=== PATIENT | male | born 1985 | race Caucasian/White ===

== ENCOUNTER 2017-03-07 20:20 | Emergency (ER) | payer SELFPAY ==
[2017-03-07 20:26] VITALS: BMI 29.7
[2017-03-07] MEDS ORDERED: NIFEDIPINE CAP 10 MG PO ONE (20:38)
[2017-03-07] MEDS ORDERED: NIFEDIPINE CAP 10 MG ONE (20:38)
--- NOTE | 2017-03-07 21:07 | DR.GENAD ---
HPI - PCP Primary Care Physician: ja - HPI Comment HPI Comment: HISTORY BELOW. - Complaint/Symptoms Chief Complaint Doctors Comments: PAIN AND REDNESS RT ELBOW TIMES 3 DAYS. MORE SWOLLEN AND REDNESS SPREADING. 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 GETTING WORSE. HAVE LOW GRADE FEVER. Chief Complaint:: pt states" my rt elbow is swollen and hurts i went to [place] they gave me a rx for septra i haven't gotten it yet" - Nurses notes reviewed Nurses Notes Review: Yes - Source History Provided: Patient - Mode of Arrival Mode of Arrival: Ambulatory - Timing Onset of Chief Complaint: 03/05/17 Came on: Gradually - Duration Duration: Constant Duration: Days - Severity Severity: Moderate PMH - PMH Past Medical History: Yes Past Medical History: Hypertension Past Surgical History: No - Family History History of Family Medical Conditions: Yes Family Medical History: Hypertension - Social History Lives With: Family Lives Where: Home - infectious screening In the last 2 months have you had wt loss of >10#?: NO Have you had fever, night sweats or hemotysis?: No Have you traveled outside the country in the last 6 months?: No Isolation: Standard ROS - Review of Systems Constitutional: Fever. negative: Chills, Weakness, Fatigue Eyes: No Symptoms Reported ENTM: No Symptoms Reported Respiratoy: No Symptoms Reported Cardiovascular: No Symptoms Reported Gastrointestinal/Abdominal: No Symptoms Reported Genitourinary: No Symptoms Reported Neurological: No Symptoms Reported Musculoskeletal: Right, Elbow Integumentary: Change in Color (REDNESS RIGHT ELBOW.) Hematologic/Lymphatic: No Symptoms Reported Endocrine: No Symptoms Reported All Other Systems: Reviewed and Negative PE - Vital Signs Vitals: Temperature 99 F Pulse Rate 98 Respiratory Rate 18 Blood Pressure [Left Arm] 147/67 Blood Pressure 198/122 O2 Sat by Pulse Oximetry 100 - General Limitations: No Limitations General Appearance: Alert - Head Head Exam: Normal Inspection - Eyes Eye exam: Normal Appearance - ENT ENT Exam: Normal External Ear Exam External Ear Exam: Normal External Inspection TM/Canal Exam: Bilateral Normal Nose Exam: Normal Nose Exam Mouth Exam: Normal Inspection Throat Exam: Normal Inspection - Neck Neck Exam: Normal Inspection - Chest Chest Inspection: Normal Inspection - Respiratory Respiratory Exam: Normal Lung Sounds Bilat Respiratory Exam: Bilateral Clear to Auscultation - Cardiovascular Cardiovascular Exam: Regular Rate, Normal Rhythm, Normal Heart Sounds - Abdominal Exam Abdominal Exam: Normal Bowel Sounds, Soft. negative: Tenderness - Extremities Extremities Exam: Tenderness (RIGHT ELBOW SWELLING, REDNESS AND TENDERNESS. PAUL.) - Back Back Exam: Normal Inspection - Neurologic Neurological Exam: Alert, Oriented X3 - Psychiatric Psychiatric Exam: Normal Affect, Normal Mood - Skin Skin Exam: Erythema MDM - Additional Information Additional Information Obtained From: Family - Differential Diagnosis Differential Diagnosis: CELLULITIS RT ELBOW. HYPERTENSION. Course - Treatment Treatment: SEE ORDERS. BP IMPROVING WITH MEDICATION. - Reevaluation 1st: Improved - Education/Counseling Education/Counseling: Patient, Family, Education Educated On: Treatment, Diagnosis, Needs for Follow Up ROR - Labs Reviewed Laboratory Results Reviewed?: Yes Result Diagrams: 03/07/17 21:16 Laboratory: WBC 11.8 X10^3/uL (3.6-10.0) H 03/07/17 21:16 RBC 5.41 X10^6/uL (4.7-6.0) 03/07/17 21:16 Hgb 16.2 g/dL (13.5-18.0) 03/07/17 21:16 Hct 46.0 % (42.0-54.0) 03/07/17 21:16 MCV 85.1 fL (80.0-100.0) 03/07/17 21:16 MCH 30.0 pg (27.0-34.0) 03/07/17 21:16 MCHC 35.2 g/dL (33.0-35.0) H 03/07/17 21:16 RDW 13.3 % (11.6-16.5) 03/07/17 21:16 Plt Count 175 X10^3/uL (150.0-450.0) 03/07/17 21:16 MPV 8.3 fL (7.4-11.0) 03/07/17 21:16 Neut % 72.0 % (42.0-75.0) 03/07/17 21:16 Lymph % 16.7 % (21.0-51.0) L 03/07/17 21:16 [place] % 10.0 % (0.0-13.0) 03/07/17 21:16 Eos % 0.8 % (0.9-2.9) L 03/07/17 21:16 Baso % 0.5 % (0.2-1.0) 03/07/17 21:16 Neut # 8.5 x10^3/uL (2.2-4.8) H 03/07/17 21:16 Lymph # 2.0 X10^3/uL (1.3-2.9) 03/07/17 21:16 [place] # 1.2 x10^3/uL (0.3-0.8) H 03/07/17 21:16 Eos # 0.1 x10^3/uL (0.0-0.2) 03/07/17 21:16 Baso # 0.1 X10^3/uL (0.0-0.1) 03/07/17 21:16 Absolute Nucleated RBC 0.1 /100WBC 03/07/17 21:16 C-Reactive Protein 37.60 mg/L (0-3.0) H 03/07/17 21:16 - XRAY XRAY Interpreted by: Radiologist XRAY Findings: REPORT DISCUSS WITH PATIENT. - Diagnosis Discharge Problem: Cellulitis of right elbow Hypertension Qualifiers: Hypertension type: essential hypertension Qualified Code(s): I10 - Essential ( primary) hypertension - Discharge Plan Disposition: 01 HOME, SELF-CARE Condition: Stable Prescriptions: Clindamycin HCl 300 mg PO Q6H #40 cap Ibuprofen [MOTRIN TAB 800 MG *] 800 mg PO Q8H PRN #20 tab PRN Reason: Pain/Inflammation - Follow ups/Referrals Follow ups/Referrals: NFD,None [Primary Care Provider] - 3 days - Instructions Instructions: Cellulitis, Adult, [id number], Hypertension, [id number] Additional Instructions: RETURN TO ED IF WORSE.
[2017-03-07 21:37] LABS: BASOPHILS # (AUTO) 0.1 X10^3/uL (0.0-0.1); BASOPHILS % (AUTO) 0.5 % (0.2-1.0); EOSINOPHILS # (AUTO) 0.1 x10^3/uL (0.0-0.2); EOSINOPHILS % (AUTO) 0.8 % (0.9-2.9); HEMOGLOBIN 16.2 g/dL (13.5-18.0); LYMPHOCYTES % (AUTO) 16.7 % (21.0-51.0); MEAN CORPUSCULAR HGB CONC 35.2 g/dL (33.0-35.0); MEAN CORPUSCULAR VOLUME 85.1 fL (80.0-100.0); MEAN PLATELET VOLUME 8.3 fL (7.4-11.0); MONOCYTES # (AUTO) 1.2 x10^3/uL (0.3-0.8); NEUTROPHILS # (AUTO) 8.5 x10^3/uL (2.2-4.8); PLATELET COUNT 175 X10^3/uL (150.0-450.0); RED BLOOD COUNT 5.41 X10^6/uL (4.7-6.0); RED CELL DISTRIBUTION WIDTH 13.3 % (11.6-16.5); WHITE BLOOD COUNT 11.8 X10^3/uL (3.6-10.0)
--- NOTE | 2017-03-07 22:02 | RAD ---
Three-view right elbow series: Indication: Right elbow pain and redness. Comparison: None available. Technique: Three views of the right elbow. Findings/impression: Alignment is anatomic without acute skeletal abnormality, arthropathy, or joint effusion. There is mild subcutaneous edema dorsal to the elbow. Otherwise, the superficial soft tissu es are unremarkable. Reported By:
[2017-03-07] MEDS ORDERED: TORADOL 60 MG VIAL IM ONE (22:29)
[2017-03-07] MEDS ORDERED: CATAPRES TAB 0.2 MG PO ONE (22:29)
[2017-03-07] MEDS ORDERED: CLEOCIN PO ONE (22:31)
[2017-03-07] MEDS ORDERED: TORADOL 60 MG VIAL ONE (22:37)
[2017-03-07] MEDS ORDERED: CLEOCIN ONE (22:37)
[2017-03-07] MEDS ORDERED: CATAPRES TAB 0.2 MG ONE (22:37)
[2017-03-07 23:39] VITALS: BP 147/67
== END 2017-03-07 23:40 | disposition home or self-care (01) ==
LOC: ER 20:31
DX: L03.113 Cellulitis of right upper limb (principal); I10 Essential (primary) hypertension
CPT/HCPCS: 36415; 73070; 85025; 86140; 87040; 96372; 99283; J1885

== ENCOUNTER 2017-03-08 21:32 | Emergency (ER) | payer SELFPAY ==
[2017-03-08 21:37] VITALS: BMI 29.7
--- NOTE | 2017-03-08 21:59 | DR.GENAD ---
HPI - PCP Primary Care Physician: [facility] - Complaint/Symptoms Chief Complaint Doctors Comments: Patient is afebrile. Taking medication as instructed. He was seent by Dr Mukherjee on yesterday advised to follow if cellulits is expanding. Chief Complaint:: RIGHT ELBOW STARTED SWELLING 3 DAYS AGO, SEEN AT [facility] GIVEN BACTRIM GOT WORSE, SEEN HERE LAST NIGHT TOLD IF SWELLLING GOES OUTSIDE OF [place] TO COME BACK. - Source History Provided: Patient - Mode of Arrival Mode of Arrival: Ambulatory - Timing Onset of Chief Complaint: 03/05/17 PMH - PMH Past Medical History: Yes Past Medical History: Hypertension Past Surgical History: No - Family History History of Family Medical Conditions: Yes Family Medical History: Hypertension - Social History Does patient currently use any type of tobacco product: No Have you used tobacco products in the last 12 months: No Type of Tobacco Use: None Lives Where: Home - infectious screening Have you traveled outside the country in the last 6 months?: No Isolation: Standard ROS - Review of Systems Eyes: No Symptoms Reported ENTM: No Symptoms Reported Respiratoy: No Symptoms Reported Cardiovascular: No Symptoms Reported PE - Vital Signs Vitals: Temperature 98.7 F Pulse Rate 89 Respiratory Rate 16 Blood Pressure [Left Arm] 147/67 Blood Pressure 181/109 O2 Sat by Pulse Oximetry 97 - General Limitations: No Limitations General Appearance: Alert, In No Apparent Distress - Head Head Exam: Normal Inspection, Atraumatic - Eyes Eye exam: Normal Appearance, PERRL, EOMI - ENT ENT Exam: Normal Exam External Ear Exam: Normal External Inspection TM/Canal Exam: Bilateral Normal Nose Exam: Normal Nose Exam, Sinus Tenderness Mouth Exam: Normal Inspection Throat Exam: Normal Inspection - Neck Neck Exam: Normal Inspection, Full ROM - Chest Chest Inspection: Normal Inspection - Respiratory Respiratory Exam: Normal Lung Sounds Bilat Respiratory Exam: Bilateral Clear to Auscultation - Cardiovascular Cardiovascular Exam: Regular Rate, Normal Rhythm - Abdominal Exam Abdominal Exam: Normal Inspection, Normal Bowel Sounds Abdominal Tenderness: negative: RUQ, RLQ, LUQ, LLQ, Epigastrium, Suprapubic, Diffuse, Mild, Moderate, Severe, Other - Extremities Extremities Exam: Normal Inspection, Other (warm to touch, extending beyound barrier by 2cm-has been on changed antibiotic x one day.) - Back Back Exam: Normal Inspection - Psychiatric Psychiatric Exam: Normal Affect, Normal Mood - Skin Skin Exam: Warm, Dry, Intact Course - Treatment Treatment: Patient given 900mg clindymycin ROR - Labs Reviewed Result Diagrams: 03/08/17 22:10 Laboratory: WBC 12.2 X10^3/uL (3.6-10.0) H 03/08/17 22:10 RBC 5.10 X10^6/uL (4.7-6.0) 03/08/17 22:10 Hgb 15.5 g/dL (13.5-18.0) 03/08/17 22:10 Hct 43.5 % (42.0-54.0) 03/08/17 22:10 MCV 85.2 fL (80.0-100.0) 03/08/17 22:10 MCH 30.4 pg (27.0-34.0) 03/08/17 22:10 MCHC 35.6 g/dL (33.0-35.0) H 03/08/17 22:10 RDW 13.1 % (11.6-16.5) 03/08/17 22:10 Plt Count 173 X10^3/uL (150.0-450.0) 03/08/17 22:10 MPV 8.2 fL (7.4-11.0) 03/08/17 22:10 Neut % 67.7 % (42.0-75.0) 03/08/17 22:10 Lymph % 19.3 % (21.0-51.0) L 03/08/17 22:10 [place] % 11.2 % (0.0-13.0) 03/08/17 22:10 Eos % 0.9 % (0.9-2.9) 03/08/17 22:10 Baso % 0.9 % (0.2-1.0) 03/08/17 22:10 Neut # 8.3 x10^3/uL (2.2-4.8) H 03/08/17 22:10 Lymph # 2.4 X10^3/uL (1.3-2.9) 03/08/17 22:10 [place] # 1.4 x10^3/uL (0.3-0.8) H 03/08/17 22:10 Eos # 0.1 x10^3/uL (0.0-0.2) 03/08/17 22:10 Baso # 0.1 X10^3/uL (0.0-0.1) 03/08/17 22:10 Absolute Nucleated RBC 0.1 /100WBC 03/08/17 22:10 C-Reactive Protein 66.10 mg/L (0-3.0) H 03/08/17 22:10 - Diagnosis Discharge Problem: Cellulitis of right forearm - Discharge Plan Condition: Stable - Follow ups/Referrals Follow ups/Referrals: NFD,None [Primary Care Provider] - 3 days - Instructions
[2017-03-08] MEDS ORDERED: CLEOCIN 600 MG IV PREMIX 600 MG/50 ML BAG IV ONE (22:02)
[2017-03-08] MEDS ORDERED: CLEOCIN 300 MG IV PREMIX 300 MG/50 ML BAG IV ONE (22:02)
[2017-03-08] MEDS ORDERED: CLEOCIN VIAL 600 MG ONE (22:04)
[2017-03-08] MEDS ORDERED: NS 100 ML IV 100 ML IV ONE (22:06)
[2017-03-08 22:37] LABS: BASOPHILS # (AUTO) 0.1 X10^3/uL (0.0-0.1); BASOPHILS % (AUTO) 0.9 % (0.2-1.0); EOSINOPHILS # (AUTO) 0.1 x10^3/uL (0.0-0.2); EOSINOPHILS % (AUTO) 0.9 % (0.9-2.9); HEMATOCRIT 43.5 % (42.0-54.0); HEMOGLOBIN 15.5 g/dL (13.5-18.0); LYMPHOCYTES # (AUTO) 2.4 X10^3/uL (1.3-2.9); LYMPHOCYTES % (AUTO) 19.3 % (21.0-51.0); MEAN CORPUSCULAR HEMOGLOBIN 30.4 pg (27.0-34.0); MEAN CORPUSCULAR HGB CONC 35.6 g/dL (33.0-35.0); MEAN CORPUSCULAR VOLUME 85.2 fL (80.0-100.0); MEAN PLATELET VOLUME 8.2 fL (7.4-11.0); MONOCYTES # (AUTO) 1.4 x10^3/uL (0.3-0.8); MONOCYTES % (AUTO) 11.2 % (0.0-13.0); NEUTROPHILS # (AUTO) 8.3 x10^3/uL (2.2-4.8); NEUTROPHILS % (AUTO) 67.7 % (42.0-75.0); PLATELET COUNT 173 X10^3/uL (150.0-450.0); RED CELL DISTRIBUTION WIDTH 13.1 % (11.6-16.5); WHITE BLOOD COUNT 12.2 X10^3/uL (3.6-10.0)
[2017-03-08 22:46] VITALS: BP 167/93
== END 2017-03-08 23:01 | disposition home or self-care (01) ==
LOC: ER 21:43
DX: L03.113 Cellulitis of right upper limb (principal)
CPT/HCPCS: 36415; 85025; 86140; 96365; 96374; 99282; 99283; A4222; S0077